=== PATIENT | male | born 1940 | race Caucasian/White ===

== ENCOUNTER 2017-02-03 09:27 | Inpatient (IN) | payer OTHER ==
[~2017-02-03] VITALS: Ht 182.9 cm; Wt 103.5 kg
--- NOTE | ~2017-02-03 | CN ---
Consultation Report [facility] [address] [place]. [address] NAME: VANESSA FRASER : 38 STATUS : ADM IN [facility]#: [id number] AGE: 76 ADM/REG DATE : 02/03/17 MR#: [id number] REPORT SERV DATE: 02/04/17 DICTATED BY: AUGUST RENDON DATE: 02/04/17 REPORT STATUS : Draft TRANSCRIBED BY: SIERRA DATE: 02/04/17 DATE OF CONSULTATION: Thank you for the opportunity to consult on this patient. HISTORY OF PRESENT ILLNESS: Mr. Fraser is a 76-year-old man with a significant prior remote smoking history, but no personal history of chronic pulmonary disease. He does not see a foxpro developer at baseline. He has had problems with fast heart rhythms and presented with atrial fibrillation, was being evaluated for cardioversion. He was fairly stable with no new respiratory complaints, but developed sudden quite significant left-sided chest pain and dyspnea. A stat CT scan of the chest showed a large left pneumothorax with complete collapse of the lung. He had a small bore chest tube placement that resolved the issue with complete re-expansion of the lungs fortunately, and he feels much better. He has had no recent cough, purulent sputum production, fever, chills, or night sweats. PAST MEDICAL HISTORY: Significant for atrial fibrillation with rapid ventricular response, hypertension. As noted above, he has no previous label of chronic lung disease, though he is a former smoker. SOCIAL HISTORY: Significant for being a former smoker, though he quit 35 years ago. No alcohol abuse or illicit drug use. FAMILY HISTORY: Noncontributory to this acute presentation of this 76-year-old man. REVIEW OF SYSTEMS: Review of 10 systems was performed and is positive for what was noted above. PHYSICAL EXAMINATION: GENERAL: He is awake and alert, in no acute distress. VITAL SIGNS: Stable. HEENT: Normocephalic and atraumatic. NECK: Supple. No lymphadenopathy. No JVD. CHEST: Symmetric with good expansion bilaterally. LUNGS: Actually clear, and he does not have an air leak from his chest tube. CARDIOVASCULAR: He has S1 and S2, which are irregular, but rate controlled. ABDOMEN: Benign. EXTREMITIES: He has no edema, no clubbing, and no cyanosis. ASSESSMENT AND PLAN: Large pneumothorax. The patient is status post large spontaneous pneumothorax. He had no preceding trauma. No significant coughing. No evidence of respiratory tract infection. His contralateral lung which was inflated at the time of the CT scan does not show significant structural lung disease. Whether this represents microscopic or fairly small amount of emphysema with an area of a bleb is unclear, though Consultation Report [place] [address]. [id number] NAME: VANESSA FRASER : 38 STATUS : ADM IN PAT#: [id number] AGE: 76 ADM/REG DATE : 02/03/17 MR#: [id number] REPORT SERV DATE: 02/04/17 DICTATED BY: AUGUST RENDON DATE: 02/04/17 REPORT STATUS : Draft TRANSCRIBED BY: SIERRA DATE: 02/04/17 that seems to be the most likely etiology. Since this is the first episode of a pneumothorax without evidence of chronic structural lung disease, we would not recommend pleurodesis at this time, though obviously we will continue to monitor him very closely with you. He will remain on suction today. We will take him off suction tomorrow, and reassess with followup chest radiographs. We appreciate the opportunity to participate in his care with you. Please do not hesitate to contact me if I could be of any further assistance. FADY/SIERRA August Rendon M.D. / [id number] CC: MD Antione Rm M.D.
--- NOTE | ~2017-02-03 | HP ---
History And Physical [place] [id number] [facility] [place]. [address] NAME: VANESSA FAN : 38 STATUS : ADM [facility] PAT#: [id number] AGE: 76 ADM/REG DATE : 02/03/17 MR#: [id number] REPORT SERV DATE: 02/03/17 DICTATED BY: ALISIA MCKOY DATE: 02/03/17 REPORT STATUS : Draft TRANSCRIBED BY: MODL DATE: 02/03/17 DATE OF ADMISSION: 02/03/2017 MANAGER ADMINISTRATION: Dex Roberto M.D. LAMINATION TECHNICIAN: Bill Zheng M.D. CHIEF COMPLAINT: Atrial fibrillation with RVR. HISTORY OF PRESENT ILLNESS: This is a very pleasant 76-year-old white gentleman with previous history of atrial fibrillation, most recently cardioverted at [facility], [place] on 01/28/2017, but seemingly back in atrial fib on 02/01/2017. The patient is unaware of any palpitations, but he checks his blood pressure routinely and he noticed his heart rate was up and his blood pressure was down, which is routine for his atrial fibrillation. He complains of some shortness of breath and a cough. Denies any chest pain, pressure, or tightness. No nausea, diaphoresis, dizziness, or belching. He did see Dr. Roberto on 02/02/2017. His calcium channel raissa was changed to metoprolol and he remained on flecainide 50 mg twice daily. The patient states he has not missed any Xarelto. The patient denies any personal history of myocardial infarction, stroke, DVT, or pulmonary embolus. The patient denies any recent fever or chills. Unaware of palpitations. No syncopal events. Denies PND or orthopnea. CHADS-VASc score of 3 for age and hypertension. PAST MEDICAL HISTORY: 1. PAF, status post recent cardioversion at [facility], [place], now on flecainide, beta-raissa, and Xarelto. 2. Hypertension. 3. Sleep apnea compliant with CPAP. 4. Previously dyslipidemic, reports off statin for one month. 5. Remote tobacco abuse. 6. Positive family history for early CAD. PAST SURGICAL HISTORY: Right rotator cuff and laser surgery on eyes. SOCIAL HISTORY: He is with three children. He is a retired cement truck driver. Does not have an exercise routine. Quit smoking 30 years ago. Denies alcohol or illicits. FAMILY HISTORY: Mother at 80 of lung cancer. Father of a brain aneurysm at 60s. Three brothers of lung cancer. Three brothers of heart attacks in their 60s. One sister of unknown cause in her 60s. One sister in her 80s. The patient is one of nine children. REVIEW OF SYSTEMS: History And Physical [address] [address] NAME: VANESSA FAN : 38 STATUS : ADM [facility] PAT#: [id number] AGE: 76 ADM/REG DATE : 02/03/17 MR#: [id number] REPORT SERV DATE: 02/03/17 DICTATED BY: ALISIA MCKOY DATE: 02/03/17 REPORT STATUS : Draft TRANSCRIBED BY: SIERRA DATE: 02/03/17 A 14-point review of systems performed, significant for HPI. No other contributory diagnoses identified. ALLERGIES: NO KNOWN DRUG ALLERGIES. HOME MEDICINES: Xarelto 20 mg daily, flecainide 50 mg twice daily, metoprolol tartrate 50 mg twice daily, spironolactone 25 mg daily, and Cardura 4 mg daily. PHYSICAL EXAMINATION: VITAL SIGNS: Blood pressure 104/58, pulse 104 to 120, respirations 16, temperature 98.0, O2 saturation 95% on room air. Height 6 feet 3 inches. Weight 238 pounds (stated). GENERAL: Cooperative, in no apparent distress. HEENT: Pupils 2 mm, sclera nonicteric. Nares patent. Moist mucous membranes. No xanthelasma. NECK: Trachea midline, no thyromegaly. No JVD. No bruits. LYMPH: No cervical lymphadenopathy. No supraclavicular lymphadenopathy. RESPIRATORY: Unlabored respirations. Breath sounds clear bilaterally to posterior auscultation. No wheezes or rhonchi. CARDIOVASCULAR: Irregularly irregular rate with a variable S1, S2. No murmur, rub or gallop appreciated. Extremities without edema. Pulses 2+ bilaterally. ABDOMEN: Soft, nontender, nondistended, normal bowel sounds auscultated throughout. No organomegaly. SKIN: Warm, dry extremities. No pallor, or cyanosis. PSYCHIATRIC: Appropriate affect. Alert, oriented x3. LABORATORY DATA: Troponin less than 0.02, second and third pending. Potassium 4.3, BUN 17, creatinine 1.22, glucose 90. Magnesium 2.1. BNP 143.3. WBC 7.1, hemoglobin 14.7, hematocrit 43.9, platelet count 178,000. PT 25.9, INR 2.4. EKG, AFib with RVR. Echo, 08/2016: EF 65%. LAE (4.4 cm mild MR and TR). ASSESSMENT AND PLAN: 1. Atrial fibrillation with rapid ventricular response. The patient remains on Cardizem drip. We will continue flecainide and continue home medications. Most likely increase flecainide to [address] Zheng to see on rounds. Further recommendations forthcoming. N.p.o. after midnight if the patient remains in atrial fibrillation for transthoracic cardioversion in the morning, which has been scheduled with Dr. Brooks. 2. Hypertension. Monitor blood pressure and continue home medications. VIOLETA/SIERRA Alisia Mckoy, MSN, ULTIMATE HOOPS SCOREBOARD OPERATOR-BC / [id number] History And Physical [address] [address] NAME: VANESSA FAN : 38 STATUS : ADM [facility] PAT#: [id number] AGE: 76 ADM/REG DATE : 02/03/17 MR#: [id number] REPORT SERV DATE: 02/03/17 DICTATED BY: ALISIA MCKOY DATE: 02/03/17 REPORT STATUS : Draft TRANSCRIBED BY: MODL DATE: 02/03/17 CC: Alisia Mckoy, MSN, ULTIMATE HOOPS SCOREBOARD OPERATOR-BC Catarino Garland M.D. Samuel O. Jones, MD
[2017-02-03 10:27] LABS: BASOPHILS 0.4 %; BASOPHILS ABSOLUTE 0.03 10/3/uL (0.0-0.16); EOSINOPHILS 1.5 %; EOSINOPHILS ABSOLUTE 0.11 10/3/uL (0.0-0.53); ER CBC TAT 0 Hrs 09 Mins; HEMATOCRIT 43.9 % (40.0-51.0); HEMOGLOBIN 14.7 g/dL (13.6-17.8); IMMATURE GRANULOCYTES 0.3 %; IMMATURE GRANULOCYTES ABSOLUTE 0.02 10/3/uL (0.0-0.11); LYMPHOCYTES 13.6 %; LYMPHOCYTES ABSOLUTE 0.97 10/3/uL (0.67-4.30); MEAN CORPUS HGB CONC 33.5 g/dL (32.0-36.0); MEAN CORPUSCULAR HEMOGLOB 30.4 pg (26.0-34.0); MEAN CORPUSCULAR VOLUME 90.7 fL (80-100); MEAN PLATELET VOLUME 9.8 fL (9.2-13.0); MONOCYTES 5.2 %; MONOCYTES ABSOLUTE 0.37 10/3/uL (0.21-1.20); NEUTROPHILS ABSOLUTE 5.64 10/3/uL (2.02-8.40); PLATELET COUNT 178 10/3/uL (150-400); RBC DISTRIBUTION WIDTH 12.6 % (12.0-16.0); RED CELL COUNT 4.84 10/6/uL (4.7-6.1); WHITE BLOOD CELLS 7.1 10/3/uL (4.5-10.5)
[2017-02-03 10:28] LABS: MANUAL DIFF NO %
[2017-02-03 10:35] LABS: INTERNATIONAL NORMAL RATI 2.4 UNITS (-); PARTIAL THROMBO TIME 40.4 SEC (22.5-37.2); PROTIME (NOT ORD) 25.9 SEC (12.0-14.5)
[2017-02-03 10:42] LABS: BUN (BLOOD UREA NITROGEN) 17 MG/DL (6-23); CALCIUM, SERUM 8.8 MG/DL (8.5-10.4); CHEST PAIN PROFILE TAT 0 Hrs 24 Mins; CHLORIDE, SERUM 107 MMOL/L (96-112); CO2 (CARBON DIOXIDE) 29 MMOL/L (24-34); CREATININE 1.22 MG/DL (0.70-1.30); GFR AFRICAN AMERICAN 66 ML/MIN (>=60); GFR NON AFRICAN AMERICAN 57 ML/MIN (>=60); GLUCOSE, SERUM 90 MG/DL (60-99); POTASSIUM, SERUM 4.3 MMOL/L (3.5-5.3); SODIUM, SERUM 141 MMOL/L (135-148); TROPONIN I <0.02 NG/ML (<0.05)
[2017-02-03] MEDS ORDERED: FLECAINIDE50 MG PO (12:06)
[2017-02-03] MEDS ORDERED: XARELTO20 MG PO (12:06)
[2017-02-03] MEDS ORDERED: LOP50 PO (12:07)
[2017-02-03] MEDS ORDERED: SPIRO25 PO (12:07)
[2017-02-03] MEDS ORDERED: CARDU4 PO (12:08)
[2017-02-03 19:03] LABS: ALBUMIN 3.5 G/DL (3.5-5.0); ALKALINE PHOSPHATASE 58 U/L (45-117); DIRECT BILIRUBIN 0.1 MG/DL (0.0-0.4); FREE T4 1.29 NG/DL (0.76-1.46); INDIRECT BILIRUBIN(NOT ORDER) 0.4 MG/DL (0.1-0.9); SGOT(AST) 13 U/L (5-40); SGPT(ALT) 16 U/L (5-65); TOTAL BILIRUBIN 0.5 MG/DL (0-1.2); TOTAL PROTEIN 7.2 G/DL (6.0-8.5)
[2017-02-04 02:51] LABS: CALCIUM, SERUM 8.4 MG/DL (8.5-10.4); CHLORIDE, SERUM 106 MMOL/L (96-112); CO2 (CARBON DIOXIDE) 27 MMOL/L (24-34); CPK 49 U/L (0-200); CREATININE 1.12 MG/DL (0.70-1.30); GFR AFRICAN AMERICAN 73 ML/MIN (>=60); GFR NON AFRICAN AMERICAN 63 ML/MIN (>=60); POTASSIUM, SERUM 4.2 MMOL/L (3.5-5.3); SODIUM, SERUM 140 MMOL/L (135-148); TROPONIN I <0.02 NG/ML (<0.05)
[2017-02-04 03:13] LABS: BUN (BLOOD UREA NITROGEN) 21 MG/DL (6-23); CK-MB 1.2 NG/ML; GLUCOSE, SERUM 131 MG/DL (60-99)
[2017-02-04 04:07] LABS: BASOPHILS 0.1 %; BASOPHILS ABSOLUTE 0.01 10/3/uL (0.0-0.16); EOSINOPHILS 1.7 %; EOSINOPHILS ABSOLUTE 0.16 10/3/uL (0.0-0.53); HEMATOCRIT 43.3 % (40.0-51.0); HEMOGLOBIN 14.6 g/dL (13.6-17.8); IMMATURE GRANULOCYTES 0.2 %; IMMATURE GRANULOCYTES ABSOLUTE 0.02 10/3/uL (0.0-0.11); LYMPHOCYTES 8.7 %; LYMPHOCYTES ABSOLUTE 0.82 10/3/uL (0.67-4.30); MEAN CORPUS HGB CONC 33.7 g/dL (32.0-36.0); MEAN CORPUSCULAR HEMOGLOB 30.5 pg (26.0-34.0); MEAN CORPUSCULAR VOLUME 90.4 fL (80-100); MEAN PLATELET VOLUME 9.9 fL (9.2-13.0); MONOCYTES 4.7 %; MONOCYTES ABSOLUTE 0.44 10/3/uL (0.21-1.20); NEUTROPHILS 84.6 %; PLATELET COUNT 176 10/3/uL (150-400); RBC DISTRIBUTION WIDTH 12.4 % (12.0-16.0); RED CELL COUNT 4.79 10/6/uL (4.7-6.1); WHITE BLOOD CELLS 9.5 10/3/uL (4.5-10.5)
[2017-02-04 04:08] LABS: MANUAL DIFF NO %
[2017-02-05 06:01] LABS: CALCIUM, SERUM 8.8 MG/DL (8.5-10.4); CHLORIDE, SERUM 106 MMOL/L (96-112); CO2 (CARBON DIOXIDE) 27 MMOL/L (24-34); CREATININE 1.19 MG/DL (0.70-1.30); GFR AFRICAN AMERICAN 68 ML/MIN (>=60); GFR NON AFRICAN AMERICAN 59 ML/MIN (>=60); GLUCOSE, SERUM 109 MG/DL (60-99); POTASSIUM, SERUM 4.2 MMOL/L (3.5-5.3); SODIUM, SERUM 139 MMOL/L (135-148)
[2017-02-05 06:02] LABS: BUN (BLOOD UREA NITROGEN) 26 MG/DL (6-23)
[2017-02-06 09:26] LABS: A/G RATIO 0.9 (0.7-1.9); ALBUMIN 3.2 G/DL (3.5-5.0); ALKALINE PHOSPHATASE 52 U/L (45-117); BUN (BLOOD UREA NITROGEN) 27 MG/DL (6-23); CALCIUM, SERUM 8.8 MG/DL (8.5-10.4); CHLORIDE, SERUM 105 MMOL/L (96-112); CO2 (CARBON DIOXIDE) 29 MMOL/L (24-34); CREATININE 1.14 MG/DL (0.70-1.30); GFR AFRICAN AMERICAN 71 ML/MIN (>=60); GFR NON AFRICAN AMERICAN 62 ML/MIN (>=60); GLOBULIN 3.7 G/DL (2.5-4.1); GLUCOSE, SERUM 107 MG/DL (60-99); SGOT(AST) 10 U/L (5-40); SGPT(ALT) 17 U/L (5-65); SODIUM, SERUM 140 MMOL/L (135-148); TOTAL BILIRUBIN 0.6 MG/DL (0-1.2); TOTAL PROTEIN 6.9 G/DL (6.0-8.5)
[2017-02-07 04:32] LABS: A/G RATIO 0.9 (0.7-1.9); ALBUMIN 2.9 G/DL (3.5-5.0); ALKALINE PHOSPHATASE 45 U/L (45-117); BUN (BLOOD UREA NITROGEN) 25 MG/DL (6-23); CALCIUM, SERUM 8.3 MG/DL (8.5-10.4); CHLORIDE, SERUM 105 MMOL/L (96-112); CO2 (CARBON DIOXIDE) 30 MMOL/L (24-34); CREATININE 1.04 MG/DL (0.70-1.30); GFR AFRICAN AMERICAN 80 ML/MIN (>=60); GFR NON AFRICAN AMERICAN 69 ML/MIN (>=60); GLOBULIN 3.3 G/DL (2.5-4.1); GLUCOSE, SERUM 90 MG/DL (60-99); POTASSIUM, SERUM 4.1 MMOL/L (3.5-5.3); SGOT(AST) 8 U/L (5-40); SGPT(ALT) 15 U/L (5-65); SODIUM, SERUM 143 MMOL/L (135-148); TOTAL PROTEIN 6.2 G/DL (6.0-8.5)
[2017-02-07 04:35] LABS: TOTAL BILIRUBIN 1.3 MG/DL (0-1.2)
[2017-02-08 03:50] LABS: BASOPHILS 0.3 %; BASOPHILS ABSOLUTE 0.02 10/3/uL (0.0-0.16); EOSINOPHILS 5.3 %; EOSINOPHILS ABSOLUTE 0.32 10/3/uL (0.0-0.53); HEMOGLOBIN 12.8 g/dL (13.6-17.8); IMMATURE GRANULOCYTES 0.3 %; IMMATURE GRANULOCYTES ABSOLUTE 0.02 10/3/uL (0.0-0.11); MEAN CORPUS HGB CONC 33.9 g/dL (32.0-36.0); MEAN CORPUSCULAR HEMOGLOB 30.5 pg (26.0-34.0); MONOCYTES 9.7 %; MONOCYTES ABSOLUTE 0.58 10/3/uL (0.21-1.20); NEUTROPHILS 64.4 %; NEUTROPHILS ABSOLUTE 3.87 10/3/uL (2.02-8.40); PLATELET COUNT 173 10/3/uL (150-400); RBC DISTRIBUTION WIDTH 12.4 % (12.0-16.0)
[2017-02-08 03:51] LABS: HEMATOCRIT 37.8 % (40.0-51.0); MANUAL DIFF NO %
[2017-02-08 04:02] LABS: BUN (BLOOD UREA NITROGEN) 24 MG/DL (6-23); CALCIUM, SERUM 8.4 MG/DL (8.5-10.4); CHLORIDE, SERUM 103 MMOL/L (96-112); CO2 (CARBON DIOXIDE) 30 MMOL/L (24-34); CREATININE 1.01 MG/DL (0.70-1.30); GFR AFRICAN AMERICAN 83 ML/MIN (>=60); GFR NON AFRICAN AMERICAN 71 ML/MIN (>=60); GLUCOSE, SERUM 91 MG/DL (60-99); POTASSIUM, SERUM 3.8 MMOL/L (3.5-5.3); SODIUM, SERUM 139 MMOL/L (135-148)
[2017-02-08] MEDS ORDERED: TIKOSYN500 MCG PO (15:01)
[2017-02-08] MEDS ORDERED: TOPXL25 PO (17:34)
== END 2017-02-08 19:20 | disposition home or self-care (01) | DRG 309 ==
LOC: ENRESERVTM → ENRESERVDT → ENRESERV → ER 09:27 → 5NO 13:22 → ER 13:22 → 5NO 13:39 → CDU2 14:29 → 5NO 14:29 → SSU1 14:29 → CDU1 14:29 → CDU2 16:24 → 5NO 02-04 09:05 → CVICU 02-06 10:01 → SSU1 02-08 10:15
PROVIDERS: Clinical Nurse Specialist; Emergency Medicine; Internal Medicine Clinical Cardiac Electrophysiology
PROC: 0W9B30Z Drainage of Left Pleural Cavity with Drainage Device, Percutaneous Approach (ICD-10-PCS; principal; 2017-02-04)
DX: I48.1 Persistent atrial fibrillation (principal); J93.11 Primary spontaneous pneumothorax; I10 Essential (primary) hypertension; G47.33 Obstructive sleep apnea (adult) (pediatric); Z87.891 Personal history of nicotine dependence; Z79.01 Long term (current) use of anticoagulants; Z79.899 Other long term (current) drug therapy; Z82.49 Family history of ischemic heart disease and other diseases of the circulatory system; Z80.1 Family history of malignant neoplasm of trachea, bronchus and lung
CPT/HCPCS: 32557; 71010; 71020; 71275; 80048; 80053; 80076; 82550; 82553; 83735; 83880; 84439; 84443; 84484; 85025; 85379; 85610; 85730; 93005; 96365; 96366; 96376; 99152; 99153; 99285; A9270-GY; J1170; J1940; J2250; J3010; J3475; Q9967